=== PATIENT | male | born 2000 | race African-American/Black ===

== ENCOUNTER 2023-05-22 11:10 | Emergency (ER) | payer OTHER ==
[~2023-05-22] VITALS: Ht 175.3 cm; Wt 81.1 kg
[2023-05-22 11:10] VITALS: TEMP 98.4
[2023-05-22 12:41] LABS: BASO % 0.3 % (0.0-1.0); EOS % 0.6 % (0.0-3.0); HEMATOCRIT 44.7 % (42.0-52.0); HEMOGLOBIN 14.8 g/dl (13.5-17.5); LYMPH # 2.2 10^3/uL (1.5-5.0); LYMPH % 64.3 % (24.0-44.0); MEAN CORPUSCULAR HGB CONC 33.1 g/dl (32.0-36.5); MEAN CORPUSCULAR VOLUME 93.7 fl (80.0-96.0); MONO # 0.3 10^3/uL (0.0-0.8); MONO % 7.5 % (2.0-8.0); NEUTROPHILS % 27.3 % (36.0-66.0); PLATELET COUNT, AUTOMATED 188 10^3/uL (150-450); RED BLOOD COUNT 4.77 10^6/uL (4.30-6.10); WHITE BLOOD COUNT 3.5 10^3/uL (4.0-10.0)
[2023-05-22] MEDS: ACETAMINOPHEN 500 MG TAB PO ONE (12:48)
[2023-05-22 13:13] LABS: NEUTROPHILS # 0.9 10^3/uL (1.5-8.5)
[2023-05-22 14:03] VITALS: BP 138/84; O2SAT 98
== END 2023-05-22 14:11 | disposition home or self-care (01) ==
LOC: M ED 11:10
DX: M54.50 Low back pain, unspecified (principal)

== ENCOUNTER 2023-12-30 15:39 | Emergency (ER) | payer OTHER ==
[~2023-12-30] VITALS: Ht 175.3 cm; Wt 82.6 kg
[2023-12-30 15:40] VITALS: BP 131/72; TEMP 98; O2SAT 98
[2023-12-30] MEDS ORDERED: IBUP200C25 PO (15:57)
== END 2023-12-30 20:34 | disposition left against medical advice (07) ==
LOC: M ED 15:39
DX: Z53.21 Procedure and treatment not carried out due to patient leaving prior to being seen by health care provider (principal)

== ENCOUNTER → 2024-05-07 | Outpatient (REF) ==
[~2024-05-07] MED LIST: IBUP200C25 PO
== END ==
LOC: M PLAIMG 09:38
PROVIDERS: ATTEND Internal Medicine
DX: R07.9 Chest pain, unspecified (principal); M54.50 Low back pain, unspecified; M25.552 Pain in left hip; M53.3 Sacrococcygeal disorders, not elsewhere classified